=== PATIENT | male | born 1995 | race Caucasian/White ===

== ENCOUNTER 2020-03-19 00:14 | Emergency (ER) | payer OTHER ==
[~2020-03-19] VITALS: Ht 185.4 cm; Wt 106.6 kg
[~2020-03-19 00:14] MED LIST: KEFLEX500 MG PO
[2020-03-19 01:21] LABS: ABSOLUTE NEUTROPHILS 5.9 thou/uL (1.4-8.2); BASOPHILS 0.8 % (0.0-2.0); EOSINOPHILS 3.1 % (0.0-3.0); HEMATOCRIT 41.5 % (42.0-52.0); HEMOGLOBIN 14.4 gm/dL (14.0-18.0); LYMPHOCYTES 32.5 % (24.0-44.0); MCH 29.3 pg (26.0-34.0); MCHC 34.7 g/dL (28.0-37.0); MCV 84.4 fL (80.0-100.0); MONOCYTES 7.5 % (1.0-8.0); PLATELET COUNT 166 thou/uL (150-400); POLYS 56.1 % (36.0-66.0); RBC 4.92 mil/uL (4.50-6.00); RDW 12.8 % (10.5-14.5); WBC 10.5 thou/uL (4.0-11.0)
[2020-03-19 01:27] LABS: CALCIUM 8.9 mg/dL (8.5-10.1); CREATININE 1.1 mg/dL (0.7-1.3)
[2020-03-19] MEDS ORDERED: IBUPROFEN 800800 M1 PO (04:05)
[2020-03-19] MEDS ORDERED: HYDROCODONE-ACE15 ML PO (04:05)
[2020-03-19 04:27] VITALS: BP 91/63
[2020-03-19] MEDS ORDERED: CLEOCIN HCL150 M1 PO (04:28)
== END 2020-03-19 04:38 | disposition home or self-care (01) ==
LOC: ER 00:14
PROVIDERS: Emergency Medicine
DX: M54.2 Cervicalgia (principal); R13.19 Other dysphagia; Z88.1 Allergy status to other antibiotic agents; Z88.2 Allergy status to sulfonamides